=== PATIENT | male | born 1995 | race Caucasian/White ===

== ENCOUNTER → 2016-05-16 | Outpatient (CLI) | payer MEDICAID ==
[2016-05-16 11:39] LABS: ABSOLUTE BASOPHILS # (AUTO) 0.1 10^3/uL (0.0-0.2); ABSOLUTE LYMPHOCYTES (AUTO) 1.7 10^3/uL (0.5-4.7); ABSOLUTE MONOCYTES (AUTO) 0.9 10^3/uL (0.1-1.4); ABSOLUTE NEUT (AUTO) 10.4 10^3/uL (1.7-8.2); BASOPHILS % (AUTO) 0.5 % (0-2); EOSINOPHILS % (AUTO) 0.2 % (0-6); HEMATOCRIT 47.4 % (37.9-51.0); HEMOGLOBIN 15.9 g/dL (13.5-17.0); HGB HCT DIFFERENCE 0.3; LYMPHOCYTES % (AUTO) 12.9 % (13-45); MEAN CORPUSCULAR HEMOGLOBIN 28.8 pg (27.0-33.4); MEAN CORPUSCULAR HGB CONC 33.6 g/dL (32.0-36.0); MEAN CORPUSCULAR VOLUME 86 fl (80-97); MONOCYTES % (AUTO) 6.7 % (3-13); RED BLOOD COUNT 5.53 10^6/uL (4.35-5.55); RED CELL DISTRIBUTION WIDTH 13.5 % (11.5-14.0); SEGMENTED NEUTROPHILS % (AUTO) 79.7 % (42-78); WHITE BLOOD COUNT 13.1 10^3/uL (4.0-10.5)
[2016-05-16 11:51] LABS: ALANINE AMINOTRANSFERASE 43 U/L (21-72); ALBUMIN 5.2 g/dL (3.5-5.0); ALKALINE PHOSPHATASE 103 U/L (38-126); ANION GAP 13 (5-19); ASPARTATE AMINO TRANSFERASE 22 U/L (17-59); BLOOD UREA NITROGEN 13 mg/dL (7-20); CALCIUM 10.3 mg/dL (8.4-10.2); CARBON DIOXIDE 28 mmol/L (22-30); CHLORIDE 104 mmol/L (98-107); CHOLESTEROL 168.74 mg/dL (0-200); Direct HDL 45 mg/dL (>40); GLUCOSE 94 mg/dL (75-110); POTASSIUM 4.3 mmol/L (3.6-5.0); SODIUM 144.8 mmol/L (137-145); TOTAL PROTEIN 8.5 g/dL (6.3-8.2); TRIGLYCERIDES 91 mg/dL (<150)
[2016-05-16 12:02] LABS: DIRECT LDL 103 mg/dL (<100)
== END ==
LOC: LAB 11:09
DX: Z00.00 Encounter for general adult medical examination without abnormal findings (principal); R07.89 Other chest pain; F79 Unspecified intellectual disabilities
CPT/HCPCS: 36415; 71020; 80053; 80061; 83036; 84443; 85025

== ENCOUNTER → 2016-06-30 | Outpatient (CLI) | payer MEDICAID ==
[2016-06-30 10:59] LABS: APPEARANCE,URINE CLEAR; BILIRUBIN,URINE NEGATIVE (NEGATIVE); GLUCOSE, URINE NEGATIVE (NEGATIVE); KETONES,URINE NEGATIVE (NEGATIVE); LEUKOCYTE ESTERASE,URINE NEGATIVE (NEGATIVE); NITRITE,URINE NEGATIVE (NEGATIVE); PROTEIN,URINE NEGATIVE (NEGATIVE); URINE SPECIFIC GRAVITY 1.004; UROBILINOGEN,URINE NEGATIVE mg/dL (<2.0)
[2016-06-30 11:24] LABS: ALBUMIN 4.4 g/dL (3.5-5.0)
[2016-07-02 11:40] LABS: ALBUMIN 3 4.1 g/dL (2.9-4.4); ALPHA-1-GLOBULIN 0.2 g/dL (0.0-0.4); ALPHA-2-GLOBULIN 3 0.6 g/dL (0.4-1.0); GLOBULIN TTL 3.2 g/dL (2.2-3.9); IMMUNOGLOBULIN A 176 mg/dL (90-386); IMMUNOGLOBULIN G 1280 mg/dL (700-1600); IMMUNOGLOBULIN M 102 mg/dL (20-172); MONOCLONAL-SPIKE Not Observed g/dL (Not Observed); PROTEIN TOTAL SERUM 7.3 g/dL (6.0-8.5)
== END ==
LOC: OD 09:29
DX: E88.09 Other disorders of plasma-protein metabolism, not elsewhere classified (principal); N39.0 Urinary tract infection, site not specified
CPT/HCPCS: 36415; 80076; 81001; 86320

== ENCOUNTER → 2018-03-31 | Outpatient (CLI) | payer MEDICAID ==
[2018-03-31 09:21] LABS: ABSOLUTE LYMPHOCYTES (AUTO) 1.8 10^3/uL (0.5-4.7); ABSOLUTE MONOCYTES (AUTO) 0.6 10^3/uL (0.1-1.4); ABSOLUTE NEUT (AUTO) 6.4 10^3/uL (1.7-8.2); BASOPHILS % (AUTO) 0.4 % (0-2); EOSINOPHILS % (AUTO) 0.3 % (0-6); HEMATOCRIT 44.7 % (37.9-51.0); HEMOGLOBIN 15.4 g/dL (13.5-17.0); LYMPHOCYTES % (AUTO) 19.9 % (13-45); MEAN CORPUSCULAR HEMOGLOBIN 29.8 pg (27.0-33.4); MEAN CORPUSCULAR HGB CONC 34.4 g/dL (32.0-36.0); MEAN CORPUSCULAR VOLUME 87 fl (80-97); PLATELET COUNT 239 10^3/uL (150-450); RED BLOOD COUNT 5.16 10^6/uL (4.35-5.55); RED CELL DISTRIBUTION WIDTH 13.6 % (11.5-14.0); SEGMENTED NEUTROPHILS % (AUTO) 72.4 % (42-78); TOTAL CELLS COUNTED % (AUTO) 100 %; WHITE BLOOD COUNT 8.9 10^3/uL (4.0-10.5)
[2018-03-31 09:43] LABS: ALANINE AMINOTRANSFERASE 18 U/L (21-72); ALBUMIN 4.9 g/dL (3.5-5.0); ALKALINE PHOSPHATASE 87 U/L (38-126); ANION GAP 13 (5-19); ASPARTATE AMINO TRANSFERASE 19 U/L (17-59); BILIRUBIN,DIRECT 0.3 mg/dL (0.0-0.4); BILIRUBIN,TOTAL 0.9 mg/dL (0.2-1.3); BLOOD UREA NITROGEN 12 mg/dL (7-20); CALCIUM 10.1 mg/dL (8.4-10.2); CARBON DIOXIDE 28 mmol/L (22-30); CHLORIDE 103 mmol/L (98-107); CHOLESTEROL 150.31 mg/dL (0-200); GLUCOSE 105 mg/dL (75-110); POTASSIUM 4.8 mmol/L (3.6-5.0); SODIUM 143.6 mmol/L (137-145); TOTAL PROTEIN 8.2 g/dL (6.3-8.2); TRIGLYCERIDES 52 mg/dL (<150)
[2018-03-31 09:54] LABS: DIRECT LDL 91 mg/dL (<100)
== END ==
LOC: LAB 08:33
PROVIDERS: ATTEND Family Medicine Geriatric Medicine
DX: E66.3 Overweight (principal); F79 Unspecified intellectual disabilities
CPT/HCPCS: 36415; 80053; 80061; 84443; 85025

== ENCOUNTER 2018-09-14 19:10 | Observation (INO) | payer MEDICAID ==
--- NOTE | 2018-09-14 21:38 | ER Document Report ---
ED Medical Screen (RME) - General Chief Complaint: Abdominal Pain Stated Complaint: ABDOMINAL PAIN Time Seen by Provider: 09/14/18 21:35 Primary Care Provider: MITCHELL BANUELOS MD [Primary Care Provider] - Follow up as needed Notes: 23-year-old male with complaints of abdominal pain since yesterday, pain is in the right mid to lower abdomen, patient vomited 3 times yesterday but none today. He has been eating normally today but the pain has not resolved. Denies flank pain. Has not had a normal bowel movement for the past couple of days which is abnormal for the patient. No history of abdominal surgeries. Ca retaker at bedside. TRAVEL OUTSIDE OF THE [place] IN LAST 30 DAYS: No - Related Data Allergies/Adverse Reactions: amoxicillin [Amoxicillin] Allergy (Verified 12/17/12 08:01) Past Medical History - Social History Chew tobacco use (# tins/day): No Frequency of alcohol use: None Renal/ Medical History: Denies: Hx Peritoneal Dialysis - Immunizations Immunizations up to date: Yes Hx Diphtheria, Pertussis, Tetanus Vaccination: Yes - 2009 Physical Exam - Vital signs Vitals: Temp Pulse Resp BP Pulse Ox 98.3 F 96 14 143/82 H 98 09/14/18 20:28 09/14/18 20:28 09/14/18 20:28 09/14/18 20:28 09/14/18 20:28 - General General appearance: Appears well In distress: None - Abdominal Distension: No distension Tenderness: Nontender Course - Re-evaluation Re-evalutation: Well-appearing patient, benign abdomen, however he is still complaining it hurts and exam is very limited by sitting position. I have greeted and performed a rapid initial assessment of this patient. A comprehensive ED assessment and evaluation of the patient, analysis of test results and completion of the medical decision making process will be conducted by additional ED providers. - Vital Signs Vital signs: Temp Pulse Resp BP Pulse Ox 98.3 F 96 14 143/82 H 98 09/14/18 20:28 09/14/18 20:28 09/14/18 20:28 09/14/18 20:28 09/14/18 20:28 Doctor's Discharge - Discharge Referrals: MITCHELL BANUELOS MD [Primary Care Provider] - Follow up as needed
[2018-09-14] MEDS ORDERED: NORMAL SALINE 1000 ML 1,000 ML IV ONE (22:11)
[2018-09-14] MEDS ORDERED: ONDANSETRON HCL INJ/PF 4 MG/2 ML SDV IV ONE (22:11)
--- NOTE | 2018-09-14 22:36 | ER Document Report ---
ED General - General Chief Complaint: Abdominal Pain Stated Complaint: ABDOMINAL PAIN Time Seen by Provider: 09/14/18 21:35 Primary Care Provider: MITCHELL BANUELOS MD [Primary Care Provider] - Follow up as needed Notes: Patient is a 23-year-old male with history of mental retardation who presents with complaint of a day and half a right lower quadrant abdominal pain with vomiting. He vomited several times yesterday. He has not yet vomited today. No diarrhea. Last bowel movement was Thursday. No fevers. No history of abdominal surgeries. Pain is only in the right lower quadrant. It is difficult to obtain whether not pain is made better or worse by anything in particular. TRAVEL OUTSIDE OF THE [place] IN LAST 30 DAYS: No - Related Data Allergies/Adverse Reactions: amoxicillin [Amoxicillin] Allergy (Verified 12/17/12 08:01) Past Medical History - Social History Smoking Status: Never Smoker Chew tobacco use (# tins/day): No Frequency of alcohol use: None Drug Abuse: None Family History: DM, Hypertension Patient has suicidal ideation: No Patient has homicidal ideation: No Renal/ Medical History: Denies: Hx Peritoneal Dialysis - Immunizations Immunizations up to date: Yes Hx Diphtheria, Pertussis, Tetanus Vaccination: Yes - 2009 Review of Systems - Review of Systems Notes: My Normal Review Basic REVIEW OF SYSTEMS: CONSTITUTIONAL : Denies fever, chills, or sweats. Denies recent illness. RESPIRATORY: Denies cough, cold, or chest congestion. Denies shortness of breath, difficulty breathing, or wheezing. GASTROINTESTINAL: Right lower quadrant abdominal pain. Nausea and vomiting. GENITOURINARY: Denies difficulty urinating, painful urination, burning, frequency, or blood in urine. MUSCULOSKELETAL: Denies neck or back pain or joint pain or swelling. SKIN: Denies rash or skin lesions. NEUROLOGICAL: Denies altered mental status or loss of consciousness. ALL OTHER SYSTEMS REVIEWED AND NEGATIVE. Physical Exam - Vital signs Vitals: Temp Pulse Resp BP Pulse Ox 98.3 F 96 14 143/82 H 98 09/14/18 20:28 09/14/18 20:28 09/14/18 20:28 09/14/18 20:28 09/14/18 20:28 - Notes Notes: General Appearance: Well nourished, alert, cooperative, no acute distress, no obvious discomfort. Vitals: reviewed, See vital signs table. Head: no swelling or tenderness to the head Eyes: PERRL, EOMI, Conjuctiva clear Mouth: No decreasd moisture Lungs: No wheezing, No rales, No rhonci, No accessory muscle use, good air exchange bilaterally. Heart: Normal rate, Regular rythm, No murmur, no rub Abdomen: Normal BS, soft, No rigidity, mild to moderate right lower quadrant abdominal tenderness to palpation., No guarding, no rebound, no abdominal masses, no organomegaly Extremities: strength 5/5 in all extremities, good pulses in all extremities, no swelling or tenderness in the extremities, no edema. Skin: warm, dry, appropriate color, no rash Neuro: speech clear, oriented x 3, normal affect, responds appropriately to questions. Course - Re-evaluation Re-evalutation: 09/14/18 22:35 Patient does have focal right lower quadrant tenderness for a day and half with some associated vomiting. This is concerning for appendicitis. It is really difficult to tell based on exam alone whether not this is truly appendicitis or not. The patient does not appear to have a large amount of pain when I push however is also very difficult to interpret how much pain he really has due to his chronic underlying medical condition. I therefore feel it is appropriate to go forward with the CT scan to investigate the appendix. 09/15/18 01:35 CT scan does confirm appendicitis. I did speak with Dr. Voss, general surgeon, who agrees to evaluate the patient for admission definitive treatment. Dictation of this chart was performed using voice recognition software; therefore, there may be some unintended grammatical errors. - Vital Signs Vital signs: Temp Pulse Resp BP Pulse Ox 98.3 F 96 14 143/82 H 98 09/14/18 20:28 09/14/18 20:28 09/14/18 20:28 09/14/18 20:28 09/14/18 20:28 - Laboratory Result Diagrams: 09/14/18 22:00 09/14/18 22:00 Laboratory results interpreted by me: 09/14/18 09/14/18 22:00 23:20 WBC 23.4 H Seg Neuts % (Manual) 83 H Lymphocytes % (Manual) 9 L Abs Neuts (Manual) 19.4 H Abs Monocytes (Manual) 1.9 H Urine Ketones TRACE H Discharge - Discharge Clinical Impression: Appendicitis Qualifiers: Appendicitis type: acute appendicitis Acute appendicitis type: with localized peritonitis Appendicitis gangrene presence: without gangrene Appendicitis perforation presence: without perforation Appendicitis abscess presence: without abscess Qualified Code(s): K35.30 - Acute appendicitis with localized peritonitis, without perforation or gangrene Condition: Stable Disposition: ADMITTED OBSERVATION Admitting Provider: Surgicalist Unit Admitted: Surgical Floor Referrals: MITCHELL BANUELOS MD [Primary Care Provider] - Follow up as needed
[2018-09-14 23:00] LABS: HEMOGLOBIN 15.4 g/dL (13.5-17.0); MEAN CORPUSCULAR HEMOGLOBIN 28.6 pg (27.0-33.4); MEAN CORPUSCULAR HGB CONC 33.4 g/dL (32.0-36.0); MEAN CORPUSCULAR VOLUME 86 fl (80-97); PLATELET COUNT 264 10^3/uL (150-450); RED BLOOD COUNT 5.38 10^6/uL (4.35-5.55); RED CELL DISTRIBUTION WIDTH 13.9 % (11.5-14.0); WHITE BLOOD COUNT 23.4 10^3/uL (4.0-10.5)
[2018-09-14 23:21] LABS: ALANINE AMINOTRANSFERASE 24 U/L (21-72); ALBUMIN 4.7 g/dL (3.5-5.0); ALKALINE PHOSPHATASE 90 U/L (38-126); ANION GAP 12 (5-19); ASPARTATE AMINO TRANSFERASE 18 U/L (17-59); BILIRUBIN,DIRECT 0.3 mg/dL (0.0-0.4); BILIRUBIN,TOTAL 0.9 mg/dL (0.2-1.3); BLOOD UREA NITROGEN 16 mg/dL (7-20); CALCIUM 9.9 mg/dL (8.4-10.2); CARBON DIOXIDE 29 mmol/L (22-30); CHLORIDE 98 mmol/L (98-107); GLUCOSE 96 mg/dL (75-110); POTASSIUM 3.7 mmol/L (3.6-5.0); SODIUM 139.2 mmol/L (137-145); TOTAL PROTEIN 8.2 g/dL (6.3-8.2)
[2018-09-14 23:22] LABS: ABSOLUTE LYMPHOCYTES# (MANUAL) 2.1 10^3/uL (0.5-4.7); ABSOLUTE MONOCYTES # (MANUAL) 1.9 10^3/uL (0.1-1.4); ABSOLUTE NEUTROPHILS# (MANUAL) 19.4 10^3/uL (1.7-8.2); BASOPHILS % (MANUAL) 0 % (0-2); EOSINOPHILS % (MANUAL) 0 % (0-6); LYMPHOCYTES % (MANUAL) 9 % (13-45); MONOCYTES % (MANUAL) 8 % (3-13); PLATELET COMMENT ADEQUATE; RBC MORPHOLOGY COMMENT MN; SEGMENTED NEUTROPHILS % (MAN) 83 % (42-78); TOTAL CELLS COUNTED 100
[2018-09-14 23:44] LABS: APPEARANCE,URINE CLEAR; BILIRUBIN,URINE NEGATIVE (NEGATIVE); COLOR,URINE YELLOW; GLUCOSE, URINE NEGATIVE (NEGATIVE); KETONES,URINE TRACE mg/dL (NEGATIVE); LEUKOCYTE ESTERASE,URINE NEGATIVE (NEGATIVE); NITRITE,URINE NEGATIVE (NEGATIVE); PROTEIN,URINE NEGATIVE (NEGATIVE); URINE SPECIFIC GRAVITY 1.017; UROBILINOGEN,URINE NEGATIVE mg/dL (<2.0)
--- NOTE | 2018-09-15 01:20 | RADIOLOGY REPORT (SQ) ---
CLINICAL HISTORY: RLQ abdominal pain COMPARISON: None. TECHNIQUE: CT ABDOMEN PELVIS WITH IV CONTRAST on 09/15/2018 12:00 AM CDT This exam was performed according to our departmental dose-optimization program, which includes automated exposure control, adjustment of the mA and/or kV according to patient size and/or use of iterative reconstruction technique. FINDINGS: Lower lungs are clear. Abdomen: The liver is normal in appearance. There is no biliary dilatation. Gallbladder is normal in appearance. The pancreas and spleen are normal in appearance. The adrenal glands and kidneys are unremarkable. Abdominal aorta is normal in course and caliber without aneurysm. There is no free air. There is no retroperitoneal adenopathy. Pelvis: There is mild thickening of the distal ileum as well as the base of the cecum. This is within the area of inflammation surrounding the appendix Urinary bladder is unremarkable. There is no free fluid. Appendix is dilated measuring 1.3 cm. . There is moderate surrounding inflammation. Skeleton: There are no acute osseous findings. No suspicious bony lesions. IMPRESSION: Acute appendicitis with no overt perforation.
[2018-09-15] MEDS ORDERED: CIPROFLOXACIN 400 MG/D5W RTU 400 MG/200 ML RTUPB IV ONE (01:32)
[2018-09-15] MEDS ORDERED: NORMAL SALINE 1000 ML 1,000 ML IV ONE (01:33)
[2018-09-15] MEDS ORDERED: METRONIDAZOLE 500 MG/NS RTU 500 MG/100 ML RTUPB IV ONE (02:00)
--- NOTE | 2018-09-15 02:12 | PDOC H&P ---
History of Present Illness Admission Date/PCP: 09/15/18 01:39 09/15/18 History of Present Illness: DENICE TREJO is a 23 year old male with history of mental retardation who presents with complaint of a day and h nilesh a right lower quadrant abdominal pain with vomiting. He vomited several times yesterday. He has not yet vomited today. No diarrhea. Last bowel movement was Thursday. No fevers. No history of abdominal surgeries. Pain is only in the right lower quadrant. pain is worse with movement or shaking. Past Medical History Cardiac Medical History: Reports: None Denies: Atrial Fibrillation, Congestive Heart Failure, Coronary Artery Disease, DVT, Myocardial Infarction, Hyperlipidema, Hypertension, Peripheral Vascular Disease, Pulmonary Embolism, Heart Murmur, Other Pulmonary Medical History: Reports: None Denies: Asthma, Bronchitis, Chronic Obstructive Pulmonary Disease (COPD), Intubation, Pneumonia, Respiratory Failure, Sleep Apnea, Tuberculosis, Other EENT Medical History: Reports: None Denies: Cataracts, Eyes, Ears, Nose, Throat, Other Neurological Medical History: Reports: None Denies: Hemorrhagic CVA, Ischemic CVA, Migraine, Multiple Sclerosis, Seizures, Other Endocrine Medical History: Reports: None Denies: Diabetes Mellitus Type 1, Diabetes Mellitus Type 2, Gestational Diabetes, Hyperthyroidism, Hypothyroidism, Obesity, Other Renal/ Medical History: Reports: None Denies: Chronic Kidney Disease, End Stage Renal Disease, Nephrolithiasis, Other Malignancy Medical History: Denies: None, Bone Cancer, Brain Cancer, Breast Cancer, Cervical Cancer, Colorectal Cancer, Leukemia, Liver Cancer, Lung Cancer, Lymphoma, Ovarian Cancer, Pancreatic Cancer, Renal (Kidney) Cancer, Skin Cancer, Other GI Medical History: Denies: None, Cirrhosis, Crohn's Disease, Diverticulitis, Gastroesophageal Reflux Disease, Hepatitis, Hiatal Hernia, Peptic Ulcer Disease, Ulcerative Colitis, Other Musculoskeltal Medical History: Denies: None, Arthritis, Fibromyalgia, Gout, Other Skin Medical History: Denies: None, Eczema, Psoriasis, Other Psychiatric Medical History: Denies: None, Alcohol Dependency, Attention Deficit Hyperactivity Disorder, Bipolar Disorder, Dementia, Depression, General Anxiety Disorder, Personality Disorder, Post Traumatic Stress Disorder, Schizoaffective Disorder, Substance Abuse, Tobacco Dependency, Other - Hx of mental redardation Traumatic Medical History: Denies: None, Gunshot Wound, Pneumothorax, Stab Wound, Traumatic Brain Inju ry, Other Hematology: Denies: None, Anemia, Hemophilia, Sickle Cell Disease, Bleeding Tendencies, Heparin Induced Thrombocytopenia, Neutropenia, Other Infectious Medical History: Denies: None, Clostridium Difficile, Hepatitis B, Hepatitis C, HIV, Methicillin-Resistant Staph Aureus, Vancomycin-Resistant Enterococci, Other Past Surgical History Past Surgical History: Denies: None, Appendectomy, Cardiac Catheterization, Carotid Endarterectomy, Cholecystectomy, Colostomy, Coronary Artery Bypass Graft, Coronary Stent, Gastric Bypass Surgery, Herniorrhaphy, Hip Replacement, Ileostomy, Internal Defibrillator, Knee Replacement, Orthopedic Surgery, Pacemaker, Renal Transplant, Splenectomy, Thyroidectomy, Tonsillectomy, Valve Replacement, Vascular Surgery, Other Social History Information Source: Parent Lives with: Family Smoking Status: Never Smoker Frequency of Alcohol Use: None Hx Recreational Drug Use: No Hx Prescription Drug Abuse: No Family History Family History: DM, Hypertension Parental Family History Reviewed: No Children Family History Reviewed: NA Sibling(s) Family History Reviewed.: NA Medication/Allergy Home Medications: Sulfamethoxazole/Trimethoprim [Septra-DS 800/160 mg Tablet] 1 tab PO BID #20 tablet 12/15/12 Allergies/Adverse Reactions: amoxicillin [Amoxicillin] Allergy (Verified 12/17/12 08:01) Physical Exam Vital Signs: Temp Pulse Resp BP Pulse Ox 98.3 F 96 14 143/82 H 98 09/14/18 20:28 09/14/18 20:28 09/14/18 20:28 09/14/18 20:28 09/14/18 20:28 Intake & Output 09/13/18 09/14/18 09/15/18 06:59 06:59 06:59 Intake Total 1000 Balance 1000 Weight 96.7 kg General appearance: PRESENT: no acute distress Head exam: PRESENT: normocephalic Eye exam: PRESENT: EOMI Ear exam: PRESENT: normal external ear exam Mouth exam: PRESENT: moist Neck exam: PRESENT: full ROM Respiratory exam: PRESENT: clear to auscultation mamadou Cardiovascular exam: PRESENT: RRR Pulses: PRESENT: normal radial pulses, normal femoral pulses Vascular exam: PRESENT: normal capillary refill GI/Abdominal exam: PRESENT: firm - tender to palpation in rlq, other Rectal exam: PRESENT: deferred Extremities exam: PRESENT: full ROM Musculoskeletal exam: PRESENT: full ROM Neurological exam: PRESENT: alert, awake, oriented to person, oriented to place Psychiatric exam: PRESENT: appropriate affect Skin exam: PRESENT: dry Results Laboratory Results: 09/14/18 22:00 09/14/18 22:00 09/14/18 09/14/18 09/14/18 22:00 22:00 23:20 WBC 23.4 H RBC 5.38 Hgb 15.4 Hct 46.0 MCV 86 MCH 28.6 MCHC 33.4 RDW 13.9 Plt Count 264 Seg Neutrophils % Not Reportable Lymphocytes % Not Reportable Monocytes % Not Reportable Eosinophils % Not Reportable Basophils % Not Reportable Absolute Neutrophils Not Reportable Absolute Lymphocytes Not Reportable Absolute Monocytes Not Reportable Absolute Eosinophils Not Reportable Absolute Basophils Not Reportable Sodium 139.2 Potassium 3.7 Chloride 98 Carbon Dioxide 29 Anion Gap 12 BUN 16 Creatinine 1.09 Est GFR ( Amer) > 60 Est GFR (Non-Af Amer) > 60 Glucose 96 Calcium 9.9 Total Bilirubin 0.9 AST 18 ALT 24 Alkaline Phosphatase 90 Total Protein 8.2 Albumin 4.7 Urine Color YELLOW Urine Appearance CLEAR Urine pH 6.0 Ur Specific [place] 1.017 Urine Protein NEGATIVE Urine Glucose (UA) NEGATIVE Urine Ketones TRACE H Urine Blood NEGATIVE Urine Nitrite NEGATIVE Ur Leukocyte Esterase NEGATIVE Urine WBC (Auto) 1 Urine RBC (Auto) 0 Impressions: Abdomen/Pelvis CT 09/15/18 00:00 IMPRESSION: Acute appendicitis with no overt perforation. Status: Image reviewed by - c/w acute appendicitis Assessment & Plan - Plan Summary Plan Summary: acute appendicitis plan - to OR for Laparoscopic possible open Appendectomy discussed risks including, bleeding, infection, injury to adjacent organs hernia formation, need for additional surgery and possible risks discussed with Father and Patient at bedside both seem to understand and agree to proceed.
[2018-09-15] MEDS ORDERED: DEXTROSE 50%-WATER 25 GM/50 ML DISP.SYRIN IV PRN ×2 (02:15)
[2018-09-15] MEDS ORDERED: 1/2 NORMAL SALINE 1,000 ML IV PRN (02:15)
[2018-09-15] MEDS ORDERED: GLUCAGON,HUMAN RECOMB 1 MG INJ SUBCUT PRN (02:15)
[2018-09-15] MEDS ORDERED: DEXTROSE 40% GEL 15 GM TUBE PO PRN ×2 (02:15)
[2018-09-15] MEDS ORDERED: MORPHINE SULFATE 10 MG/ML INJ IV PRN (02:21)
[2018-09-15] MEDS: METRONIDAZOLE 500 MG/NS RTU 500 MG/100 ML RTUPB IV SCH ×4 (04:49→20:53)
[2018-09-15] MEDS ORDERED: BUPIVACAINE HCL 0.25 % INJ/PF (2.5 MG/1 ML) 30 ML VIAL ONE (08:17)
[2018-09-15] MEDS ORDERED: MIDAZOLAM 2 MG/2 ML INJ ONE (08:48)
[2018-09-15] MEDS ORDERED: FENTANYL CITRATE INJ/PF 100 MCG/2 ML AMPUL ONE (08:48)
[2018-09-15] MEDS ORDERED: PROPOFOL INJ 200 MG/20 ML VIAL IV ONE (08:48)
[2018-09-15] MEDS ORDERED: HYDROMORPHONE HCL INJ/PF 2 MG/ML AMPULE ONE (08:48)
[2018-09-15] MEDS ORDERED: SUGAMMADEX SODIUM 200 MG/2 ML SDV IV ONE (08:50)
[2018-09-15] MEDS ORDERED: OXYCODONE-ACETAMINOPHEN 5-325 MG TABLET PO PRN ×2 (09:24)
[2018-09-15] MEDS ORDERED: DIPHENHYDRAMINE HCL 50 MG/ML VIAL IV PRN (09:24)
[2018-09-15] MEDS ORDERED: PROMETHAZINE HCL INJ 25 MG/1 ML VIAL IV PRN ×2 (09:24)
[2018-09-15] MEDS ORDERED: MEPERIDINE HCL/PF INJ 25 MG/1 ML DISP.SYRIN IV PRN (09:24)
[2018-09-15] MEDS ORDERED: FENTANYL CITRATE INJ/PF 100 MCG/2 ML AMPUL IV PRN ×3 (09:24)
[2018-09-15] MEDS ORDERED: ONDANSETRON HCL INJ/PF 4 MG/2 ML SDV IV PRN (09:24)
[2018-09-15] MEDS ORDERED: CIPROFLOXACIN 400 MG/D5W RTU 400 MG/200 ML RTUPB IV SCH ×3 (10:00→15:00)
[2018-09-15] MEDS ORDERED: HYDROCODONE/ACETAMINOPHEN 10-325 MG TABLET PO PRN (11:02)
--- NOTE | 2018-09-15 13:31 | Operative Report ---
Nonrecallable Operative Report DATE OF SURGERY: 09/15/18 PREOPERATIVE DIAGNOSIS: Acute appendicitis POSTOPERATIVE DIAGNOSIS: Acute, suppurative appendicitis OPERATION: Laparoscopic appendectomy SURGEON: LUIS EDUARDO POZO ANESTHESIA: GA TISSUE REMOVED OR ALTERED: Appendix COMPLICATIONS: None apparent ESTIMATED BLOOD LOSS: Minimal PROCEDURE: Drains/implants: None. Procedure in detail: After informed consent was obtained, the patient was brought into the operating room and laid in the supine position. The area of th e abdomen was prepped and draped in a normal sterile fashion. A supraumbilical incision was created with a 15 blade scalpel. Dissection was carried through the subcutaneous tissue using sharp and blunt dissection. The cicatrix was identified, grasped with a Graham clamp, and retracted upwards. The linea alba fascia was incised sharply, the abdomen was entered sharply. The balloon trocar was inserted, and pneumoperitoneum was achieved. A suprapubic 5 mm port was placed under direct laparoscopic visualization. Another left lower quadrant 5 mm port was placed under direct laparoscopic visu alization. Atraumatic graspers were placed through the 5 mm ports. The appendix was acutely inflamed. There was fibrinous exudate in the right lower quadrant, however there was no sign of abscess or free perforation. The appendix was freed from the surrounding structures very carefully using blunt dissection. The appendix was retracted anteriorly and the mesoappendix was taken down using the harmonic scalpel. Once the appendix was freed, the base was felt to be somewhat necrotic. Secondary to this, a 60 mm [place] endoscopic stapler with a blue load was used to divide the appendix and a small portion of the cecum. The appendix was then placed into an Endo Catch bag and pulled out through the umbilicus. The camera was reinserted. The staple line appeared to be healthy. There was a small amount of blood in the right lower quadrant from the dissection. This was suctioned. The right lower quadrant appeared to be hemostatic. No irrigation was used. The remainder of the abdomen was inspected, and found to be free of any obvious defect. Next the 5 mm trochars were removed under direct laparoscopic visualization. The supraumbilical trocar was removed, and pneumoperitoneum was relieved. The supraumbilical fascia was closed using 0 Vicryl suture in [id number] fashion. The overlying skin was closed using 4-0 Vicryl Rapide suture in subcuticular fashion. Dressings were placed, and the procedure was concluded. All sponge, instrument, and needle counts were correct x2. Condition: Stable.
[2018-09-15] MEDS: ONDANSETRON HCL INJ/PF 4 MG/2 ML SDV IV PRN ×2 (13:43→18:03)
[2018-09-15] MEDS ORDERED: GLYCOPYRROLATE 1 MG/5 ML SYRINGE ONE (13:48)
[2018-09-15] MEDS ORDERED: ONDANSETRON HCL INJ/PF 4 MG/2 ML SDV ONE (13:48)
[2018-09-15] MEDS ORDERED: KETOROLAC TROMETHAMINE 60 MG/2 ML SDV ONE (13:48)
[2018-09-15] MEDS ORDERED: LIDOCAINE 2% INJ-PF (20 MG/ML) 2 ML AMPUL ONE (13:48)
[2018-09-15] MEDS ORDERED: NEOSTIGMINE METHYLSULFATE 10 MG/10 ML VIAL ONE (13:48)
[2018-09-15] MEDS ORDERED: ROCURONIUM BROMIDE INJ 50 MG/5 ML VIAL IV ONE (13:48)
[2018-09-15] MEDS ORDERED: DEXAMETHASONE SOD PHOSPHATE INJ 4 MG/1 ML VIAL ONE (13:48)
[2018-09-15] MEDS ORDERED: METOCLOPRAMIDE HCL INJ/PF 10 MG/2 ML SDV ONE (13:48)
[2018-09-15] MEDS: CIPROFLOXACIN 400 MG/D5W RTU 400 MG/200 ML RTUPB IV SCH (15:10)
[2018-09-16] MEDS: METRONIDAZOLE 500 MG/NS RTU 500 MG/100 ML RTUPB IV SCH ×3 (02:15→17:50)
[2018-09-16] MEDS: CIPROFLOXACIN 400 MG/D5W RTU 400 MG/200 ML RTUPB IV SCH ×2 (03:24→14:58)
--- NOTE | 2018-09-16 17:19 | PDOC PROGRESS REPORT ---
Subjective Progress Note for:: 09/16/18 Subjective:: less pains Tolerating clears Reason For Visit: ACUTE APPENDICITIS Physical Exam Vital Signs: Temp Pulse Resp BP Pulse Ox 98.8 F 81 18 120/61 99 09/16/18 15:46 09/16/18 15:46 09/16/18 15:46 09/16/18 15:46 09/16/18 15:46 Intake & Output 09/15/18 09/16/18 09/17/18 06:59 06:59 06:59 Intake Total 1300 3045 600 Output Total 0 810 450 Balance 1300 2235 150 Weight 96.6 kg 96.8 kg Exam: abd is soft with mild tenderness Results Laboratory Results: 09/14/18 22:00 09/14/18 22:00 Impressions: Abdomen/Pelvis CT 09/15/18 00:00 IMPRESSION: Acute appendicitis with no overt perforation. Assessment & Plan - Diagnosis (1) Appendicitis Qualifiers: Appendicitis type: acute appendicitis Acute appendicitis type: with localized peritonitis Appendicitis gangrene presence: without gangrene Appendicitis perforation presence: without perforation Appendicitis abscess presence: without abscess Qualified Code(s): K35.30 - Acute appendicitis with localized peritonitis, without perforation or gangrene Is this a current diagnosis for this admission?: Yes - Time Time Spent with patient: 15-24 minutes - Inpatient Certification Medical Necessity: Need For IV Fluids, Need for IV Antibiotics, Risk of Complication if Not Cared For in Hospital - Plan Summary Plan Summary: Repeat WBC in am Increase diet Discharge in am if tolerating diet and WBC trending down
[2018-09-16 19:17] LABS: ABSOLUTE BASOPHILS # (AUTO) 0.1 10^3/uL (0.0-0.2); ABSOLUTE LYMPHOCYTES (AUTO) 2.1 10^3/uL (0.5-4.7); ABSOLUTE MONOCYTES (AUTO) 1.5 10^3/uL (0.1-1.4); ABSOLUTE NEUT (AUTO) 11.3 10^3/uL (1.7-8.2); BASOPHILS % (AUTO) 0.4 % (0-2); EOSINOPHILS % (AUTO) 0.1 % (0-6); HEMATOCRIT 39.2 % (37.9-51.0); HEMOGLOBIN 13.2 g/dL (13.5-17.0); LYMPHOCYTES % (AUTO) 13.7 % (13-45); MEAN CORPUSCULAR HEMOGLOBIN 28.8 pg (27.0-33.4); MEAN CORPUSCULAR HGB CONC 33.7 g/dL (32.0-36.0); MEAN CORPUSCULAR VOLUME 86 fl (80-97); MONOCYTES % (AUTO) 10.1 % (3-13); PLATELET COUNT 231 10^3/uL (150-450); RED BLOOD COUNT 4.58 10^6/uL (4.35-5.55); RED CELL DISTRIBUTION WIDTH 13.8 % (11.5-14.0); SEGMENTED NEUTROPHILS % (AUTO) 75.7 % (42-78); TOTAL CELLS COUNTED % (AUTO) 100 %
[2018-09-16 20:03] VITALS: BP 129/73
--- NOTE | 2018-09-17 13:17 | DISCHARGE SUMMARY E ---
Discharge Summary NAME: DENICE TREJO : 1995 AGE: 23Y ADMITTED: 09/15/2018 DISCHARGED: 09/16/2018 PROCEDURE DONE: Laparoscopic appendectomy, 09/15/2018. SURGEON: Gage Steiner M.D. HOSPITAL COURSE: This is a 22-year-old male with some mild mental retardation, complained of abdominal pains and subsequent CAT scan of the abdomen revealed acute appendicitis. The patient underwent laparoscopic appendectomy on 09/15/[address] Steiner. Postoperatively the patient had some nausea after the surgery, but on the day of discharge patient able to tolerate regular diet. His white count on admission was 24,000. A stat white cell count done on the day of discharge showed it went down to 15,000. He is afebrile and all the incision sites look clean and dry. He was then discharged on 09/16/2018 with the above final diagnosis. Patient given a prescription for Cipro 500 mg p.o. twice a day for the next 3 days. He was also advised not to do any lifting more than 10 to 15 pounds. All these instructions were given to the patient and to his parents who are at bedside. He will be followed up in the surgical clinic in about 10 to 14 days. He can shower. DICTATING PHYSICIAN: JOE SCHOFIELD M.D. [id number] EMMANUELY#: [id number] ID: [id number] JOB#: [id number] ACCT: [id number] cc:Dilma MORRISON PA >
== END 2018-09-16 20:51 | disposition home or self-care (01) ==
LOC: ER 19:10 → INTOOBSV 09-15 01:39 → EH 09-15 01:39 → OBSVTOIN 09-15 01:39 → INTOOBSV 09-15 02:15 → OBSVTOIN 09-15 02:15 → 2N 09-15 03:05
PROVIDERS: ATTEND Surgery
PROC: 0DTJ4ZZ Resection of Appendix, Percutaneous Endoscopic Approach (ICD-10-PCS; principal; 2018-09-15 09:00)
DX: K35.890 Other acute appendicitis without perforation or gangrene (principal); Z88.1 Allergy status to other antibiotic agents; F70 Mild intellectual disabilities
CPT/HCPCS: 44970; 99285; 96361; 96375; 96365; 36415 ×2; 85025 ×2; 80053; 81001; 88304 ×2; 74177; J2250; J3490 ×5; J1100; J1885; J2765; J2710; J1170; J2405 ×2; S0020; J7030; J2704; J0744 ×2; 840; G0378; J3010

== ENCOUNTER → 2020-03-20 | Outpatient (CLI) | payer MEDICAID ==
[2020-03-20 09:21] LABS: ABSOLUTE LYMPHOCYTES (AUTO) 1.8 10^3/uL (0.5-4.7); ABSOLUTE MONOCYTES (AUTO) 0.6 10^3/uL (0.1-1.4); ABSOLUTE NEUT (AUTO) 4.3 10^3/uL (1.7-8.2); BASOPHILS % (AUTO) 0.6 % (0-2); EOSINOPHILS % (AUTO) 0.7 % (0-6); HEMATOCRIT 44.4 % (37.9-51.0); HEMOGLOBIN 15.3 g/dL (13.5-17.0); MEAN CORPUSCULAR HEMOGLOBIN 29.5 pg (27.0-33.4); MEAN CORPUSCULAR HGB CONC 34.4 g/dL (32.0-36.0); MEAN CORPUSCULAR VOLUME 86 fl (80-97); MONOCYTES % (AUTO) 9.1 % (3-13); PLATELET COUNT 215 10^3/uL (150-450); RED BLOOD COUNT 5.19 10^6/uL (4.35-5.55); SEGMENTED NEUTROPHILS % (AUTO) 63.6 % (42-78); TOTAL CELLS COUNTED % (AUTO) 100 %; WHITE BLOOD COUNT 6.8 10^3/uL (4.0-10.5)
[2020-03-20 09:43] LABS: ALBUMIN 4.8 g/dL (3.5-5.0); ALKALINE PHOSPHATASE 83 U/L (38-126); ANION GAP 11 (5-19); ASPARTATE AMINO TRANSFERASE 26 U/L (17-59); BILIRUBIN,DIRECT 0.1 mg/dL (0.0-0.4); BILIRUBIN,TOTAL 0.8 mg/dL (0.2-1.3); BLOOD UREA NITROGEN 10 mg/dL (7-20); CALCIUM 10.1 mg/dL (8.4-10.2); CARBON DIOXIDE 29 mmol/L (22-30); CHLORIDE 103 mmol/L (98-107); GLUCOSE 96 mg/dL (75-110); POTASSIUM 4.5 mmol/L (3.6-5.0); TOTAL PROTEIN 7.9 g/dL (6.3-8.2)
== END ==
LOC: OD 07:56
PROVIDERS: ATTEND Family Medicine Geriatric Medicine
DX: E66.3 Overweight (principal); Z79.899 Other long term (current) drug therapy; E88.09 Other disorders of plasma-protein metabolism, not elsewhere classified
CPT/HCPCS: 36415; 80053; 84443; 85025